=== PATIENT | male | born 1950 | race Caucasian/White ===

== ENCOUNTER → 2019-07-26 08:06 | Outpatient (BNVA) | payer MEDICARE, OTHER, SELFPAY | PROVIDERS: Family Provider Nurse Practitioner Family; PCP Nurse Practitioner Family; Visit Provider Podiatrist Foot & Ankle Surgery | DX: M79.672 Pain in left foot (principal); M79.671 Pain in right foot | CPT/HCPCS: 73630 ==

== ENCOUNTER 2019-11-19 13:58 | Outpatient (CLI) | payer MEDICARE, OTHER, SELFPAY | END 2019-11-19 13:59 | disposition home or self-care (01) | LOC: SPT 13:59 | PROVIDERS: Family Provider Nurse Practitioner Family; PCP Nurse Practitioner Family; Visit Provider Podiatrist Foot & Ankle Surgery | DX: M21.41 Flat foot [pes planus] (acquired), right foot (principal); L85.1 Acquired keratosis [keratoderma] palmaris et plantaris | CPT/HCPCS: 97760; L3030 ==

== ENCOUNTER → 2021-07-22 15:14 | Outpatient (BNVA) | payer MEDICARE, OTHER, SELFPAY | PROVIDERS: Family Provider Nurse Practitioner Family; PCP Nurse Practitioner Family; Visit Provider Podiatrist Foot & Ankle Surgery | DX: B07.9 Viral wart, unspecified (principal); M21.41 Flat foot [pes planus] (acquired), right foot; M21.42 Flat foot [pes planus] (acquired), left foot; M76.829 Posterior tibial tendinitis, unspecified leg; L85.1 Acquired keratosis [keratoderma] palmaris et plantaris | CPT/HCPCS: 17110 ==

== ENCOUNTER → 2022-09-13 15:19 | Outpatient (BNVA) | payer MEDICARE, OTHER, SELFPAY | PROVIDERS: Family Provider Nurse Practitioner Family; PCP Nurse Practitioner Family; Visit Provider Podiatrist Foot & Ankle Surgery | DX: L85.1 Acquired keratosis [keratoderma] palmaris et plantaris (principal); M21.41 Flat foot [pes planus] (acquired), right foot; M21.42 Flat foot [pes planus] (acquired), left foot | CPT/HCPCS: 17110 ==

== ENCOUNTER → 2024-06-04 08:13 | Outpatient (BNVA) | payer MEDICARE, OTHER, SELFPAY | PROVIDERS: Family Provider Nurse Practitioner Family; PCP Nurse Practitioner Family; Referring Provider Student in an Organized Health Care Education/Training Program; Visit Provider Nurse Practitioner Family | DX: I10 Essential (primary) hypertension (principal); L85.9 Epidermal thickening, unspecified; N40.0 Benign prostatic hyperplasia without lower urinary tract symptoms | CPT/HCPCS: 80048; 80061; G0103 ==